=== PATIENT | male | born 1955 | race Caucasian/White ===

== ENCOUNTER 2020-03-16 19:43 | Emergency (ER) | payer MEDICARE, OTHER ==
[~2020-03-16] VITALS: Ht 170.2 cm; Wt 78.0 kg
[2020-03-16] MEDS ORDERED: HYDROCODONE/APAP 10-325 MG TABLET ONE (20:02)
[2020-03-16] MEDS ORDERED: HYDROCODONE/APAP 10-325 MG TABLET PO ONE (20:15)
--- NOTE | 2020-03-16 20:37 | NUR ---
Patient discharged to home in stable condition. Written and verbal after care instructions given. Patient verbalizes understanding of instructions. Stressed follow up or return to ER for worsening s/s. Ambulated from ER with stable gait. All belongings with patient.
[2020-03-16 20:40] VITALS: BP 131/87
== END 2020-03-16 20:40 | disposition home or self-care (01) ==
LOC: ER 19:51
DX: S52.592A Other fractures of lower end of left radius, initial encounter for closed fracture (principal); W01.0XXA Fall on same level from slipping, tripping and stumbling without subsequent striking against object, initial encounter; Y92.89 Other specified places as the place of occurrence of the external cause
CPT/HCPCS: 73110; A4663